=== PATIENT | female | born 1970 | race Caucasian/White ===

== ENCOUNTER → 2016-11-15 | Outpatient (CLI) | payer OTHER ==
[~2016-11-15] MED LIST: IOHEXOL 300 MG/ML 50 ML VIAL. IJ ONE
--- NOTE | 2016-11-15 15:22 | KCIC ---
PROCEDURE Pelvic ultrasound. HISTORY Odor. Black colored menses. TECHNIQUE Transabdominal imaging was initially performed. Transvaginal imaging was required to better evaluate the uterus. COMPARISON None. FINDINGS Uterus measures 11.2 x 6.1 x 4.5 centimeters in size. The endometrial stripe measures 14 millimeters. There is a hypoechoic lesion with internal echoes in the lower uterine segment to the right of midline measuring 17 x 13 millimeters. Nabothian cysts are noted. Both ovaries are visualized with color flow documented. IMPRESSION Potential fibroid within the lower uterine segment. Electronically signed by: Farshad Berger MD (Nov 15, 2016 15:20:29)
--- NOTE | 2016-11-15 16:36 | KCIC ---
PROCEDURE Bilateral screening mammography HISTORY 46-year-old asymptomatic female presents for baseline screening mammogram. Patient denies personal or family history of breast cancer. COMPARISON None, baseline exam. FINDINGS Bilateral digital mammograms are obtained with CAD. The breasts are heterogeneously dense, which can obscure small masses (tissue density C). No dominant suspicious mass, suspicious microcalcifications, or architecture distortion is identified in either breast. IMPRESSION Negative exam. Recommend screening mammogram in 1 year. BI-RADS category 1: Negative The patient information was entered into a reminder system with a target due date for the next mammogram. Mammography is not 100% sensitive in detecting breast cancer. Therefore, a self breast exam and a clinical breast exam are very important. A negative mammogram does not negate a clinically suspicious finding and should not result in a delay in biopsying a clinically suspicious abnormality. Electronically signed by: Nadine Guevara (Nov 15, 2016 16:35:09)
== END | disposition home or self-care (01) ==
LOC: KCIC US 13:26
PROVIDERS: ATTEND Family Medicine
DX: Z12.31 Encounter for screening mammogram for malignant neoplasm of breast (principal); N88.8 Other specified noninflammatory disorders of cervix uteri
CPT/HCPCS: 76830; 76856; G0202; 77067